=== PATIENT | male | born 1985 | race Caucasian/White ===

== ENCOUNTER 2016-10-16 06:35 | Emergency (ER) | payer MEDICARE, OTHER ==
[2016-10-16 06:56] LABS: BASO % 0.3 % (0.2-1.2); EOS % 0.2 % (0.8-7.0); GRAN # 12.2 10_X3_uL (1.8-5.4); GRAN % 77.5 % (34.0-67.9); HEMOGLOBIN 17.4 g/dL (13.7-17.5); LYMPH # 2.6 10_X3_uL (1.3-3.6); LYMPH % 16.4 % (21.8-53.1); MEAN CORPUSCULAR HEMOGLOBIN 31.6 pg (27.0-33.0); MEAN CORPUSCULAR HGB CONC 36.3 g/dL (32.0-36.0); MEAN CORPUSCULAR VOLUME 87.3 fL (79-92); MEAN PLATELET VOLUME 10.4 fl (7.5-11.5); MONO # 0.9 10_X3_uL (0.3-0.8); MONO % 5.6 % (5.3-12.2); PLATELET COUNT 288 x10_3/uL (163-337); RED CELL DISTRIBUTION WIDTH 13.3 % (11.6-14.4); WHITE BLOOD COUNT 15.8 x10_3/uL (4.2-9.1)
[2016-10-16 07:08] LABS: ALBUMIN 4.2 gm/dL (3.4-5.0); ALKALINE PHOSPHATASE 92 U/L (50-136); ALT/SGPT 35 U/L (7.53-40.17); AST/SGOT 38 U/L (6.66-35.34); BILIRUBIN,TOTAL 0.22 mg/dL (0.0-1.0); BLOOD UREA NITROGEN 10 mg/dL (7-18); CALCIUM 8.6 mg/dL (8.7-10.7); CARBON DIOXIDE 17 mmol/L (21-32); GLUCOSE,RANDOM 321 mg/dL (70-99); SODIUM 139 mmol/L (136-145); TOTAL PROTEIN 7.5 gm/dL (6.4-8.2)
[2016-10-16 07:13] LABS: POTASSIUM 4.5 mmol/L (3.5-5.1)
[2016-10-16 08:08] LABS: ARTERIAL BLD GAS O2 SATURATION 96.2 % (94-98); ARTERIAL BLOOD GAS BASE EXCESS -4.5 mmol/L (-2.0-3.0); ARTERIAL BLOOD GAS HCO3 21.3 mmol/L (22-26); ARTERIAL BLOOD GAS PCO2 43.5 mmHg (35-48); ARTERIAL BLOOD GAS pH 7.31 (7.35-7.45)
== END 2016-10-16 10:40 | disposition short-term general hospital (02) ==
LOC: ER 06:35
PROVIDERS: Emergency Medicine
DX: G40.909 Epilepsy, unspecified, not intractable, without status epilepticus (principal); E11.65 Type 2 diabetes mellitus with hyperglycemia; J32.9 Chronic sinusitis, unspecified; Z88.0 Allergy status to penicillin; Z79.899 Other long term (current) drug therapy; Z79.82 Long term (current) use of aspirin
CPT/HCPCS: 36415; 36600; 70450; 80053; 80177; 80307; 82009; 82803; 83036; 85025; 93005; 96374; 99284; 99285-25; J3360